=== PATIENT | female | born 1985 | race Caucasian/White ===

== ENCOUNTER → 2016-12-18 | Outpatient (CLI) | payer OTHER ==
[~2016-12-18] MED LIST: BUPRTAB PO; BUTA1CAP17; DEXM10TA PO; FLUO10CA48 PO; FRCT/ PO; IMT50 PO; LAMO25TA PO; MEDR150I SQ; ONDA4TAB46 PO; RIZA10TA18 PO; SUMA0.05 IM; SUMA100T16 PO; SUMA50TA15 PO; TOPI1CAP2 PO; TOPI50TA16 PO
[2016-12-18 17:36] LABS: BASO % 0.6 %; BASO ABS # 0.05 K/uL (0-0.2); COMPLETE YES; EOS % 2.7 %; HEMATOCRIT 39.2 % (37-47); IG% 0.2 %; LYMPH % 28.3 %; LYMPH ABS # 2.39 K/uL (1.2-3.4); MEAN CELL VOLUME 90.3 fL (80-100); MEAN CORPUSCULAR HEMOGLOBIN 30.6 pg (25-34); MEAN CORPUSCULAR HGB CONC 33.9 g/dl (32-36); MEAN PLATELET VOLUME 9.5 fL (7.4-10.4); NEUT % 62.2 %; PLATELET COUNT 288 K/uL (130-400); RED BLOOD COUNT 4.34 M/uL (4.2-5.4); WHITE BLOOD COUNT 8.45 K/uL (4.8-10.8)
[2016-12-18 18:05] LABS: ALT/SGPT 17 U/L (12-78); AST/SGOT 10 U/L (15-37); BLOOD UREA NITROGEN 12 mg/dl (7-18); BUN/CREATININE RATIO 17.4 (10-20); CARBON DIOXIDE 29 mmol/L (21-32); CHLORIDE 106 mmol/L (98-107); CREATININE 0.68 mg/dl (0.60-1.20); GLUCOSE 94 mg/dl (70-99); SODIUM 141 mmol/L (136-145)
[2016-12-18 18:15] LABS: ALB/GLOB RATIO 1.2 (0.9-2); ALKALINE PHOSPHATASE 61 U/L (45-117)
[2016-12-18 20:38] LABS: LYME DISEASE AB IGG NEG (NEG); LYME DISEASE AB IGM NEG (NEG)
== END | disposition home or self-care (01) ==
LOC: C.LAB 17:07
PROVIDERS: ATTEND Psychiatry & Neurology Neurology
DX: G43.909 Migraine, unspecified, not intractable, without status migrainosus (principal)

== ENCOUNTER 2017-03-12 11:15 | Emergency (ER) | payer OTHER ==
[~2017-03-12] VITALS: Ht 162.6 cm; Wt 57.5 kg
[~2017-03-12 11:15] MED LIST changes: -BUPRTAB PO; -BUTA1CAP17; -DEXM10TA PO; -FLUO10CA48 PO; -IMT50 PO; -LAMO25TA PO; -SUMA50TA15 PO; -TOPI50TA16 PO
[2017-03-12 11:16] VITALS: TEMP 36.8; Ht 162.6 cm; Wt 57.5 kg
[2017-03-12] MEDS ORDERED: KETOROLAC TROMETHAMINE 30 MG/ML VIAL IV STA (11:39)
[2017-03-12] MEDS ORDERED: DiphenhydrAMINE HCL 50 MG/ML VIAL IV STA (11:39)
[2017-03-12] MEDS ORDERED: PROCHLORPERAZINE 5 MG/ML 2 ML VIAL IV STA (11:39)
[2017-03-12] MEDS ORDERED: SODIUM CHLORIDE 0.9% 1000ML 1,000 ML IV ONE (11:45)
[2017-03-12] MEDS ORDERED: DEXAMETHASONE SOD INJ 10 MG/ML VIAL IV ONE (11:45)
[2017-03-12 12:06] LABS: BASO % 0.3 %; BASO ABS # 0.03 K/uL (0-0.2); COMPLETE YES; EOS % 1.1 %; HEMATOCRIT 41.5 % (37-47); IG% 0.2 %; LYMPH % 9.8 %; MEAN CELL VOLUME 91.2 fL (80-100); MEAN CORPUSCULAR HEMOGLOBIN 30.8 pg (25-34); MEAN CORPUSCULAR HGB CONC 33.7 g/dl (32-36); MEAN PLATELET VOLUME 9.3 fL (7.4-10.4); MONO % 5.2 %; NEUT % 83.4 %; PLATELET COUNT 278 K/uL (130-400); RED BLOOD COUNT 4.55 M/uL (4.2-5.4); WHITE BLOOD COUNT 9.23 K/uL (4.8-10.8)
[2017-03-12] MEDS ORDERED: DEXM10TA PO (12:11)
[2017-03-12] MEDS ORDERED: BUPRTAB PO (12:11)
[2017-03-12] MEDS ORDERED: SUMA50TA15 PO (12:11)
[2017-03-12 12:24] LABS: BUN/CREATININE RATIO 12.4 (10-20); CALCIUM 8.8 mg/dl (8.5-10.1); CREATININE 0.65 mg/dl (0.60-1.20); POTASSIUM 3.9 mmol/L (3.5-5.1)
[2017-03-12 12:30] LABS: ALB/GLOB RATIO 1.2 (0.9-2)
[2017-03-12 12:44] VITALS: BP 105/62
[2017-03-12 13:37] VITALS: PULSE 65; O2SAT 98
--- NOTE | 2017-03-12 16:18 | EMERGENCY ROOM VISIT NOTE ---
History First contact with patient: 11:22 Chief Complaint: HEADACHE Stated Complaint: MIGRAINE History of Present Illness The patient is a 31 year old female who presents to the Emergency Room with complaints of migraine headache has been ongoing for the past days. The patient has a long-standing history of migraine headaches and this is not the worst headache of her life. She states this feels typical of her normal headaches and is primarily right sided and posterior. The patient has had a visual aura and her symptoms are not relieved with Imitrex and Maxalt at home. The patient does follow with both pain management where she has had some improvement of her symptoms over time with Botox. She also sees neurology, Dr. Mike. The patient has not had fever or chills. No recent injury. No numbness or paresthesias. She rates her discomfort a 7/10. She did have emesis earlier this week but none today. She denies chance of . Review of Systems More than 10 systems were reviewed and otherwise negative with the exception of history of present illness. Past Medical/Surgical History History of chronic migraines Family History No pertinent family history Social History Smoking Status: Never Smoker Marital Status: single Occupation Status: [employer] student Current/Historical Medications Scheduled Acetamin/Butalbital/Caffeine (Fioricet), 1 TAB PO PRN Bupropion Hcl (Wellbutrin Xl), 150 MG PO DAILY Dexmethylphenidate Hcl (Focalin), 15 MG PO DAILY Medroxyprogesterone Acetate (C (Depo-Provera Contraceptiv), 1 SQ q4 months Sumatriptan Succinate (Zembrace Symtouch), 1 IM PRN Sumatriptan Succinate (Imitrex), 100 MG PO PRN Scheduled PRN Ondansetron Hcl (Zofran), 4 MG PO for Nausea Sumatriptan Succinate (Imitrex), 50 MG PO PRN PRN for Migraine Miscellaneous Medications Rizatriptan Benzoate (Maxalt), 10 MG PO Allergies Coded Allergies: NO KNOWN DRUG ALLERGIES (Unverified Allergy, Unknown, SHORTNESS OF BREATH , 11/11/16) Physical Exam Vital Signs Date Time Temp Pulse Resp B/P Pulse Ox O2 Delivery O2 Flow Rate FiO2 03/12/17 13:37 65 16 98 03/12/17 12:44 61 15 105/62 98 Room Air 03/12/17 11:16 36.8 72 20 121/83 97 Room Air Pain Rating (0-10): 0 Physical Exam VITALS: Vitals are noted on the nurse's note and reviewed by myself. Vital signs stable. GENERAL: Well-developed, well-nourished, white female who appears uncomfortable but nontoxic. Patient is cooperative with the examination. HEAD: Normocephalic atraumatic. NECK: Supple without nuchal rigidity. No lymphadenopathy. No thyromegaly. Cervical spine is nontender. No meningismus. HEART: Regular rate and rhythm without murmurs gallops or rubs. LUNGS: Clear to auscultation bilaterally without wheezes, rales or rhonchi. No retractions or accessory muscle use. MUSCULOSKELETAL: No muscle atrophy, erythema, or edema noted. Full range of motion without joint tenderness in all extremities. NEURO: Patient was alert and oriented to person place and time. CN II through XII grossly intact. Medical Decision & Procedures Laboratory Results 03/12/17 11:45 Red Blood Count 4.55, Mean Corpuscular Volume 91.2, Mean Corpuscular Hemoglobin 30.8, Mean Corpuscular Hemoglobin Concent 33.7, Mean Platelet Volume 9.3, Neutrophils (%) (Auto) 83.4, Lymphocytes (%) (Auto) 9.8, Monocytes (%) (Auto) 5.2, Eosinophils (%) (Auto) 1.1, Basophils (%) (Auto) 0.3, Neutrophils # (Auto) 7.70, Lymphocytes # (Auto) 0.90, Monocytes # (Auto) 0.48, Eosinophils # (Auto) 0.10, Basophils # (Auto) 0.03 03/12/17 11:45 Test 03/12/17 11:45 White Blood Count 9.23 K/uL (4.8-10.8) Red Blood Count 4.55 M/uL (4.2-5.4) Hemoglobin 14.0 g/dL (12.0-16.0) Hematocrit 41.5 % (37-47) Mean Corpuscular Volume 91.2 fL (80-100) Mean Corpuscular Hemoglobin 30.8 pg (25-34) Mean Corpuscular Hemoglobin Concent 33.7 g/dl (32-36) Platelet Count 278 K/uL (130-400) Mean Platelet Volume 9.3 fL (7.4-10.4) Neutrophils (%) (Auto) 83.4 % Lymphocytes (%) (Auto) 9.8 % Monocytes (%) (Auto) 5.2 % Eosinophils (%) (Auto) 1.1 % Basophils (%) (Auto) 0.3 % Neutrophils # (Auto) 7.70 K/uL (1.4-6.5) Lymphocytes # (Auto) 0.90 K/uL (1.2-3.4) Monocytes # (Auto) 0.48 K/uL (0.11-0.59) Eosinophils # (Auto) 0.10 K/uL (0-0.5) Basophils # (Auto) 0.03 K/uL (0-0.2) RDW Standard Deviation 42.2 fL (36.4-46.3) RDW Coefficient of Variation 12.5 % (11.5-14.5) Immature Granulocyte % (Auto) 0.2 % Immature Granulocyte # (Auto) 0.02 K/uL (0.00-0.02) Anion Gap 4.0 mmol/L (3-11) Est Creatinine Clear Calc Drug Dose 108.4 ml/min Estimated GFR () 137.1 Estimated GFR (Non- 118.3 BUN/Creatinine Ratio 12.4 (10-20) Calcium Level 8.8 mg/dl (8.5-10.1) Total Bilirubin 0.4 mg/dl (0.2-1) Aspartate Amino Transf (AST/SGOT) 8 U/L (15-37) Alanine Aminotransferase (ALT/SGPT) 15 U/L (12-78) Alkaline Phosphatase 58 U/L (45-117) Total Protein 7.5 gm/dl (6.4-8.2) Albumin 4.1 gm/dl (3.4-5.0) Globulin 3.4 gm/dl (2.5-4.0) Albumin/Globulin Ratio 1.2 (0.9-2) Medications Administered Medications (Trade) Dose Ordered Sig/Charo Route Start Time Stop Time Status Last Admin Dose Admin Sodium Chloride (Nss 1000ml) 1,000 ml @ 999 mls/hr Q1H1M ONCE IV 03/12/17 11:45 03/12/17 12:45 DC 03/12/17 12:01 999 MLS/HR Diphenhydramine HCl (Benadryl Inj) 25 mg NOW STAT IV 03/12/17 11:39 03/12/17 11:40 DC 03/12/17 12:00 25 MG Prochlorperazine Edisylate (Compazine Inj) 10 mg NOW STAT IV 03/12/17 11:39 03/12/17 11:40 DC 03/12/17 12:01 10 MG Dexamethasone Sodium Phosphate (Decadron Inj) 10 mg NOW ONCE IV 03/12/17 11:45 03/12/17 11:46 DC 03/12/17 12:00 10 MG Ketorolac Tromethamine (Toradol Inj) 30 mg NOW STAT IV 03/12/17 11:39 03/12/17 11:40 DC 03/12/17 12:00 30 MG ED Course Physical exam and history were performed. Nursing notes and EMR were reviewed. Patient appears to have a migraine headache. She has had these in the past and has multiple outpatient specialists for her migraines. She states that her last CT scan was 8 months ago and was normal. She does not have signs of meningitis or encephalitis, and states this feels similar to her normal migraine. IV access was established and labs were obtained. The patient was hydrated with normal saline. She was given 30 mg IV Toradol, 10 mg IV Decadron , 10 mg IV Compazine, 25 mg IV Benadryl. The patient was reevaluated multiple times throughout the course of her stay. She had a complete resolution of her symptoms after the above interventions. Her blood work is as above and does not show evidence of infection or electrolyte imbalance. Overall the patient does appear stable for discharge home. She was asked to follow-up with her specialist for further care and management. She was otherwise invited back to the ER with any new, worsening, or concerning symptoms. The chart was completed utilizing [employer] Speech Voice Recognition Software. Grammatical errors, random word insertions, pronoun errors, and incomplete sentences are an occasional consequence of this system due to software limitations, ambient noise, and hardware issues. Any formal questions or concerns about the content, text, or information contained within the body of this dictation should be directly addressed to the provider for clarification. . Medical Decision The differential diagnosis includes, but is not limited to: acute intracranial bleed, meningitis, encephalitis, mass or mass effect, sinusitis, infection, tumor, headache, temporal arteritis and carbon monoxide exposure, and migraine. Impression Primary Impression: Migraine Departure Information Dispostion Home / Self-Care Condition GOOD Referrals No Doctor, Assigned (PCP) Forms HOME CARE DOCUMENTATION FORM, IMPORTANT VISIT INFORMATION Patient Instructions [facility] Additional Instructions You were seen and evaluated today on an emergency basis only. This is not a substitute for, or an effort to provide, complete comprehensive medical care. It is not possible to recognize and treat all injuries or illnesses in a single emergency department visit. For this reason it is recommended that you followup with your primary care physician or neurologist this week for ongoing care and evaluation. DO NOT drive, drink alcohol, operate machinery, or perform dangerous activities today. You were given medications in the ER that can affect your ability to safely function or operate a vehicle. Rest today in a quiet, peaceful, dark environment and get a full 8-10 hrs of sleep tonight. Avoid loud noises, smoke/smoking, alcohol, bright lights, stress, or physical exertion today to minimize the chance the headache may return. Continue current medications. Ibuprofen(Motrin, Advil) may be used for fever or pain. Use 600mg every six hours as needed. Take with food. Avoid using more than 2400mg in a 24 hour period. Do not use 2400mg per day for more than three consecutive days without physician direction. Prolonged inappropriate use can lead to stomach upset or ulcers. (AND/OR) Acetaminophen(Tylenol) may be used for fever or pain. Use 1000mg every six hours as needed. Avoid using more than 4000mg in a 24 hour period. Return to the ER for passing out, worsening headache, vision problems, neck stiffness/pain, fevers, vomiting, worsening of your condition, or as needed.
[2017-07-01] MEDS ORDERED: LAMO25TA PO (15:21)
[2017-07-01] MEDS ORDERED: FLUO10CA48 PO (15:21)
== END 2017-03-12 14:06 | disposition home or self-care (01) ==
LOC: C.EDB 11:16
DX: G43.909 Migraine, unspecified, not intractable, without status migrainosus (principal); Z79.899 Other long term (current) drug therapy